=== PATIENT | male | born 1990 | race Caucasian/White ===

== ENCOUNTER 2023-10-03 18:36 | Emergency (ER) | payer OTHER, BC ==
[~2023-10-03] VITALS: Ht 172.7 cm; Wt 90.7 kg
[2023-10-03 18:40] VITALS: BP_SYST 167; PULSE 91; RESP 19; TEMP 98.3; O2SAT 96
[2023-10-03] MEDS ORDERED: IBUP-1969 PO (20:48)
[2023-10-03] MEDS ORDERED: ACET-2634 PO (20:48)
[2023-10-03 21:18] LABS: BARBITURATE, URINE NEGATIVE (NEG <=200); BENZODIAZEPINE, URINE NEGATIVE (NEG <=150); CANNABINOID, URINE NEGATIVE (NEG <=50); COCAINE, URINE NEGATIVE (NEG <=150); METHAMPHETAMINES SCREEN,URINE NEGATIVE (NEG <=500); OPIATE, URINE NEGATIVE (NEG <=100); PHENCYCLIDINE SCREEN,URINE NEGATIVE (NEG <=25); URINE AMPHETAMINE NEGATIVE (NEG <=500); URINE METHADONE NEGATIVE (NEG <=200); URINE OXYCODONE SCREEN NEGATIVE (NEG <=100)
[2023-10-03 21:19] LABS: UR TRICYCLIC ANTIDEPRESSANTS NEGATIVE (NEG <=300)
== END 2023-10-03 21:11 | disposition home or self-care (01) ==
LOC: SED 18:36
DX: M54.2 Cervicalgia (principal); R51.9 Headache, unspecified; R03.0 Elevated blood-pressure reading, without diagnosis of hypertension; Z79.899 Other long term (current) drug therapy
CPT/HCPCS: 70450-TC; 72125-TC; 80307; 99284